=== PATIENT | male | born 1935 | race Caucasian/White ===

== ENCOUNTER 2023-12-13 23:16 | Inpatient (IN) | payer OTHER, SELFPAY ==
[2023-12-13] VITALS (7 sets, daily range): BP systolic 121–146; BP diastolic 62–77; BMI 29.2
[2023-12-13 17:52] LABS: % Basophils 0.4 % (0-2); % Immature Granulocytes 0.6 % (0-0.5); % Monocytes 10.2 % (1.7-9.3); % Neutrophils 55.8 % (42.2-75.2); Absolute Eosinophils 0.2 10^3/uL (0-0.7); Absolute Lymphocytes 1.6 10^3/uL (1.2-3.4); Absolute Monocytes 0.6 10^3/uL (0.1-0.6); Hematocrit 23.9 % (39.0-52.0); Hemoglobin 8.6 g/dL (13.0-18.0); Mean Corpuscular Hgb 33.2 pg (27.0-31.0); Mean Corpuscular Volume 92.3 fL (80.0-94.0); Mean Platelet Volume 9.4 fL (7.4-10.4); Nucleated Red Blood Cells % 0 % (-); Platelet Count 111 10^3/uL (130-400); Red Blood Cell Count 2.59 10^6/uL (4.70-6.10); Red Cell Dist. Width 13.2 % (11.5-14.5); White Blood Cell Count 5.4 10^3/uL (4.8-10.8)
[2023-12-13 18:12] LABS: Troponin I < 0.012 ng/ml
[2023-12-13 18:20] LABS: ALT (SGPT) 20 U/L (0-50); AST (SGOT) 22 U/L (17-59); Albumin 3.5 g/dl (3.5-5.0); Alkaline Phosphatase 43 U/L (38-126); Blood Urea Nitrogen 42 mg/dl (9-20); Calcium 9.4 mg/dl (8.4-10.2); Carbon Dioxide 22 mmol/L (22-30); Chloride 97 mmol/L (98-107); Estimated Creatinine Clearance 29 ml/min; Glucose 190 mg/dl (70-99); Potassium 4.2 mmol/L (3.5-5.1); Sodium 131 mmol/L (135-145); Total Bilirubin 0.7 mg/dl (0.2-1.3); Total Protein 5.7 g/dl (6.3-8.2); eGFR 31.71
--- NOTE | 2023-12-13 22:15 | ED.GENMED ---
History of Present Illness
General
Chief Complaint: Fainting/Passed Out
Source: patient, family and ambulance crew
Exam Limitations: none
Time Seen by Provider: 12/13/23 21:50
Nursing documentation reviewed up to this point in time: agreed with
History of Present Illness
History of Present Illness:
88-year-old male with a past medical history of hypertension, hyperlipidemia, diabetes, chronic kidney disease who presents to the emergency room via EMS accompanied by his family for evaluation of lightheadedness/presyncope. Patient was reportedly
in his normal state of health and was in the shower around 4 PM�his was assisting him. He began to complain of feeling dizzy and his assisted him to sit. She says that he then had a prolonged (10 to 15 minutes) episode where he was less
responsive, 'eyes rolled back'. He says that he remembers feeling 'like I was going to pass out.' His says that he was still talking but very out of it during the episode. By EMS arrival symptoms had resolved. He says that he feels well
here. He does not recall any chest pain, palpitations. No abdominal or flank pain. No headache. No focal weakness or numbness, vision changes. No similar symptoms in the past. He had labs sent in triage and was noted to be anemic�he has had
dark stools attributed to recent initiation of iron.
Past History
Past History
ED Past Medical History: HTN, Hypercholesterolemia, NIDDM and Other (BPH, right lung mass with right lung lobectomy)
Social History
Tobacco: Former smoker
Personal:
Living: with family
Employment: Retired
Review of Systems
Review of Systems
All Other Systems: ROS reviewed and negative except as documented in HPI and ROS
Constitutional: Denies fever or chills
Respiratory: Denies cough or trouble breathing
Cardiac: Reports syncope; Denies chest pain or palpitations
ABD/GI: Denies abdominal pain, nausea or vomiting
: Denies flank pain
Musculoskeletal: Denies edema, neck pain or back pain
Neurological: Denies dizzy or headache
Phy Exam
Physical Exam
Physical Exam:
General: Awake, alert, oriented x3; no acute distress
Head: Normocephalic, atraumatic
Eyes: Conjunctiva normal, sclera anicteric
Throat: Airway intact, handling secretions
Neck: Trachea midline, supple without meningismus
Lungs: Clear to auscultation bilaterally, no wheezing, rales, rhonchi
Heart: Regular rate and rhythm, no murmurs, gallops, or rubs appreciated
Abd: Soft, non distended, nontender, no palpable masses
Rectal: Black stool with no bright red blood, Hemoccult was very faintly positive
Neuro: No gross deficits
Skin: no rash
Extremities: No edema in extremities, equal pulses in all extremities
Scores
Heart Failure Risk
Heart Failure Risk Score: Not Applicable
Heart Score for Chest Pain Patients
STEMI patient?: Not applicable
Withdrawal Assessment of Alcohol
Withdrawal Assessment Completed?: Not applicable
Course
Orders/Labs/Results
Orders:
Orders
12/13/23 17:14
Electrocardiogram (*1) Urgent
Reason for Study: Syncope
EKG- Treatment ONCE
12/13/23 17:35
Complete Blood Count/With Diff Urgent
Comprehensive Metabolic Panel Urgent
Troponin I Urgent
12/13/23 22:14
Pantoprazole [Protonix IV] 40 mg IV NOW STA
12/13/23 22:15
PTT Urgent
Prothrombin Time Urgent
Pantoprazole 80 mg/100 ml Nss [Protonix] 80 mg in 100 ml IV Q10H
Abnormal Lab Results
12/13/23
17:35
RBC 2.59 L 10^6/uL
(4.70-6.10)
Hgb 8.6 L g/dL
(13.0-18.0)
Hct 23.9 L %
(39.0-52.0)
MCH 33.2 H pg
(27.0-31.0)
Plt Count 111 L 10^3/uL
(130-400)
Immature Gran % 0.6 H %
(0-0.5)
Monocytes % 10.2 H %
(1.7-9.3)
Sodium 131 L mmol/L
(135-145)
Chloride 97 L mmol/L
(98-107)
BUN 42 H mg/dl
(9-20)
Creatinine 2.0 H mg/dL
(0.7-1.3)
Glucose 190 H mg/dl
(70-99)
Total Protein 5.7 L g/dl
(6.3-8.2)
12/13/23 17:35
12/13/23 17:35
Vital Signs
Initial and Last Documented VS:
Initial Vital Signs
Temp Pulse Resp Pulse Ox
35.4 C L 66 20 100
12/13/23 17:15 12/13/23 17:15 12/13/23 17:15 12/13/23 17:15
Last Documented Vital Signs
Temp Pulse Resp BP Pulse Ox
36.0 C L 96 20 134/67 100
12/13/23 20:36 12/13/23 21:51 12/13/23 21:51 12/13/23 21:51 12/13/23 21:51
MDM/Problems Addressed
Differential Diagnosis Includes:
Dysrhythmia, anemia, dehydration, hypoglycemia, electrolyte derangement
MDM/Problems Addressed:
88-year-old male presents for evaluation after prolonged episode of lightheadedness/presyncope. Resolved by arrival here in the ER. Vitals were significant for some mild hypothermia otherwise unremarkable. He was in the shower during the episode.
Physical exam as above. He had an EKG in triage which shows sinus rhythm with no AV block. Had labs sent in triage which showed anemia with a hemoglobin of 8.6 today�this is increased from prior value of 11.5 (from 2021). CMP shows stable
creatinine at 2. Glucose 190. Troponin was undetectable. Hemoccult performed was very faintly positive�apparently does have prior history of ulcer, could have acute on chronic anemia from GI bleeding leading to his lightheadedness. I think he
should have his hemoglobin trended and monitor for bleeding. Will start on PPI plus infusion. Admit for continued monitoring. Discussed with hospitalist for admission.
*EKG
Interpreted by ED Provider?: Yes
Heart Rate: 80
Rate: normal
Rhythm: sinus and PVC's
Fidelity: left axis deviation
Interval: first degree heart block
QRS Pattern: low voltage
Ischemia: non-specific ST changes
*Critical Care Note
Total Time (30-74mins, 75-104mins- exclusive of procedures): Not Applicable
Data Reviewed
Review of Other/Old Records Reveals: Labs and Records
Source: patient, spouse, family and ambulance crew
Patient Management
Discussion with other providers: Hospitalist (Discussed with hospitalist)
Escalation/DeEscalation of care consider admission/obs:
Admission indicated
ED Attending Note
-
Portions of this chart may have been created with voice recognition software.� Occasional wrong word or��sound alike� substitutions may have occurred due to the inherent limitations of voice recognition software.
Discharge Plan
Departure
Patient Disposition: Admit
Date of Disposition: 12/13/23
Time of Disposition: 22:18
Admit to doctor: Mariaelena
Presentation/result/management discussed w/ accepting MD/DO: Hospitalist
Discharge Problem:
Lightheadedness, Anemia, Upper GI bleed
Prescriptions:
No Action
glipizide [Glipizide XL] 5 MG tablet extended release 24hr
10 mg PO BID
atenolol 25 MG tablet
25 mg PO DAILY
aspirin [Aspir-Low] 81 MG tablet,delayed release (DR/EC)
81 mg PO DAILY
bumetanide 1 MG tablet
1 mg PO DAILY
Centrum Chewables 1 EACH tablet,chewable
1 ea PO DAILY
atorvastatin 40 mg Tablet
40 mg PO HS
famotidine 20 mg Tablet
20 mg PO DAILY
tamsulosin 0.4 mg Capsule
0.4 mg PO HS
methimazole 5 mg Tablet
5 mg PO HS
lisinopril 5 mg Tablet
5 mg PO HS
insulin glargine [Lantus Solostar U-100 Insulin] 100 unit/mL (3 mL) Insulin Pen
6 unit SC .AM
insulin glargine [Lantus Solostar U-100 Insulin] 100 unit/mL (3 mL) Insulin Pen
10 unit SC QPM
Tradjenta 5 mg Tablet
5 mg PO DAILY
Glucosamine Chondroitin 550-30-1 mg Capsule
1 cap PO BID
Prevagen
1 tab PO DAILY
calcium
1 tab PO DAILY
niacin
1 tab PO DAILY
pantoprazole [Protonix] 40 mg tablet,delayed release (DR/EC)
40 mg PO BID Qty: 20 0RF
Referrals:
UNKNOWN - PT DOES,NOT KNOW [Family Provider] -
Interventions
Interventions:
*Risk Screen - Suicide Last Done: 12/13/23 18:35
*General Assessment Last Done: 12/13/23 18:35
*Neglect/Abuse Screening Last Done: 12/13/23 18:35
*ED COVID-19 Vaccine History Last Done: 12/13/23 18:34
ED- Cardiac Assessment Last Done: 12/13/23 18:34
ED- Neurological Assessment Last Done: 12/13/23 17:25
Discharge Date and Time
Print Language: PUERTO RICAN
--- NOTE | 2023-12-13 22:25 | HPS.HSE ---
Family Physician
-
Family Physician: NOT KNOW UNKNOWN - PT DOES
Chief Complaint
-
Near syncope x 2
History of Present Illness
88-year-old male from family's home by EMS with reported 2 witnessed near syncopal episodes while sitting in the shower. He reports feeling very dizzy with his eyes rolling back. His states he was dizzy and belching with bulging eyes bigger
than his normal eyes she states she reports he did not pass out he was talking to her during these events. He reports chronic black stools from ferrous sulfate. He does report some recent hard black stools. He denies fever, chills, chest pain,
palpitations, cough, shortness of breath, abdominal pain, nausea, vomiting, diarrhea, urinary symptoms. He received 500 cc NSS bolus by EMS en route to the ER. The patient and report they live in [facility] and were due to go home
tomorrow December 14, 2023.
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
approximately 60 years ago BPH, DM 2
Medical History
Past Medical History
Past Medical History: Reports Other
Additional Past Medical History:
HTN
HLD
palpitations
right lung lobectomy secondary to lung mass
former smoker 12 years 3 pack a day quit 1967
chronic bilateral hand essential tremors
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
BPH
DM 2
Past Surgical History: Reports Other
Additional Past Surgical History:
right lung lobectomy secondary to lung mass,
Social History
Tobacco: Former Smoker (former smoker 12 years 3 pack a day quit 1967)
Alcohol: None
Drug: None
Personal:
Living: With Family ( Brandee)
Employment: Retired
Family History
Family History: Other (Mother CAD 72 Father DM2 complications a 77)
Allergies / Home Medications
Allergies reflects when Allergies were last updated in [employer].
Home Medications with original date entered in [employer]
Allergy/Medication List:
Allergies
Allergy/AdvReac Type Severity Reaction Status Date / Time
No Known Allergies Allergy Verified 12/13/23 17:08
Home Medications
aspirin 81 mg tablet,delayed release (Aspir-Low) 81 mg PO DAILY 11/15/13
bumetanide 1 mg tablet 1 mg PO DAILY 11/15/13
rrqnwooc-awfbflmy-pjcu 8 mg-folic ac 400 mcg-vit K 10 mcg chew tablet (Centrum Chewables) 1 ea PO DAILY 11/15/13
Prevagen 1 tab PO DAILY 11/12/21
atorvastatin 40 mg tablet 40 mg PO HS 11/12/21
calcium 1 tab PO DAILY 11/12/21
famotidine 20 mg tablet 20 mg PO DAILY 11/12/21
glucosamine sulf dipot chlr,msm,chond 550 mg-C 30 mg-octavia 1 mg capsule (Glucosamine Chondroitin) 1 cap PO BID 11/12/21
insulin glargine 100 unit/mL (3 mL) subcutaneous pen (Lantus Solostar U-100 Insulin) 6 unit SC .AM 11/12/21
linagliptin 5 mg tablet (Tradjenta) 5 mg PO DAILY 11/12/21
lisinopril 5 mg tablet 5 mg PO HS 11/12/21
methimazole 5 mg tablet 5 mg PO HS 11/12/21
niacin 1 tab PO DAILY 11/12/21
Vitamin C 1 tab PO DAILY 12/13/23
ferrous sulfate 325 mg PO DAILY 12/13/23
Review of Systems
-
History Source: Patient and Family ( Brandee at bedside)
A 12 point ROS was completed and negative except as noted: Yes
Constitutional: Denies Fever, Fatigue or Chills
EENT: Reports Other (Chronic large goiter left side greater than right); Denies Sore Throat or Runny Nose
Respiratory: Denies Cough or Trouble Breathing
Cardiac: Reports Other (Near syncope at home); Denies Chest Pain, Diaphoresis or Palpitations
Abdomen/GI: Reports Constipated and Black Stools (Reports chronic black due to oral iron); Denies Abdominal Pain, Nausea, Vomiting, Diarrhea or Bloody Stools
: Denies Dysuria, Frequency, Flank Pain or Incontinence
Musculoskeletal: Denies Joint Pain or Edema
Skin: Denies Itching or Rash
Neurological: Reports Dizzy and Other (Chronic bilateral hand essential tremors); Denies Headache or Weakness
Endocrine: Reports No Symptoms
Hematologic/Lymphatic: Reports No Symptoms
Psych: Reports Calm
Physical Exam
Vital Signs
Vital Signs
Temp Pulse Resp BP Pulse Ox
96.8 F L 96 20 134/67 100
12/13/23 20:36 12/13/23 21:51 12/13/23 21:51 12/13/23 21:51 12/13/23 21:51
Physical Exam
General: Comfortable and Conversant; No Pain, Fever or Chills
HEENT: NormoCephalic, Anicteric, PERRLA (Exophthalmos), Alcova Conjunctivae, No Ptosis and Other (Large left-sided thyroid goiter extending to just below mandible, right side thyroid goiter one third of the way up neck)
Respiratory: Clear; No Wheezes, Rales or Rhonchi
Cardiac: S1/S2 and Regular Rhythm; No Murmur, Rub, Gallop or Peripheral Edema
Breast: Deferred by me
GI: Soft, Non Tender, Non Distended, Normal Bowel Sounds and No Hepatosplenomegaly
Rectal: Hem Positive (Faint heme positive dark black stool per ER report)
Genito-urinary: Deferred by me
Musculoskeletal: No Clubbing, No Cyanosis and No Edema
Skin: Warm and Dry; No Rash or Jaundice
Neuro: AO x 3, No Motor Deficits, Cranial Nerves Intact, No Sensory Deficits and Tremors (Chronic bilateral hand essential tremors); No Slurred Speech, Facial Droop or Sedated
Psych: Calm
Laboratory Results
-
12/13/23 17:35
12/13/23 17:35
Laboratory Results
Total Bilirubin 0.7 mg/dl (0.2-1.3) 12/13/23 17:35
AST 22 U/L (17-59) 12/13/23 17:35
ALT 20 U/L (0-50) 12/13/23 17:35
Alkaline Phosphatase 43 U/L (38-126) 12/13/23 17:35
Troponin I < 0.012 ng/ml 12/13/23 17:35
Impression/Plan
-
Impression/plan:
Admit to telemetry
#Symptomatic anemia with near syncope
#Anemia 2/2 possible Upper GI bleed
#Hx iron deficiency anemia
-Reported slightly black heme positive stool in ER
-Hgb 8.6 prior labs 11.5 in 2021
-Type and screen, obtain blood consent
-Clears then n.p.o. after midnight
-Check B12, folate, iron panel
-Consult GI
-Check orthostatic vitals
-IV PPI drip
-HOLD ASA 81 mg daily
-HOLD current ferrous sulfate 325 mg once a day
-Follow CBC, BMP
#Hyperthyroidism/large goiter
#History of radioactive iodine 68 years ago
-Check TSH with free T4 reflex
-Continue methimazole 5 mg at bedtime
#CKD 3B�4A
Creat 2 is same as prior 11/12/2021
-Follow BMP
-Hold prevagin
#HTN�benign
BP 134/67
-Check orthostatic vitals
-Hold bumetanide 1 mg daily, lisinopril 5 mg at bedtime
#HLD
-Hold atorvastatin 40 mg at bedtime
#DM 2
-Accu-Cheks with SSI low , check HgbA1c
-Hold Lantus 6 units in a.m., Tradjenta 5 mg daily
#BPH hx
-Patient no longer on tamsulosin
#Right lung lobectomy secondary to lung mass 2013
Former smoker 12 years 3 pack/day quit 1967
#Chronic bilateral hand essential tremors
#Hx palpitations
DVT prophylaxis
SCDs
Full code per patient with Brandee at bedside
[2023-12-13] MEDS: PROTONIX 100 IV (22:39)
[2023-12-13] MEDS: PROTONIX IV 40 MG IV (22:39)
--- NOTE | 2023-12-13 22:49 | W.PN.UPDATE ---
Update Note
Progress Note Update
This note serves as an addendum to the H&P by electrician journeyman wireman DESIRE Maxine MAYO
HPI
88M Former smoker, HX HTN, HLD, NIDDM , BPH, s/p right lung lobectomy for Rt lung massseen at ER for
- lightheadedness this afternoon
- associated near syncopla episode
- found to have 3 point Hb drop (11.5-->8.6) albiet compared to 2021.
- Reports black stools but is on iron.
- Per ER DEMETRIS: faintly POS stool HOB
PHX: see above
Reviewed VS: T 95.8 --> 96.8
Vital Signs
Temp Pulse Resp BP Pulse Ox
96.8 F L 96 20 134/67 100
12/13/23 20:36 12/13/23 21:51 12/13/23 21:51 12/13/23 21:51 12/13/23 21:51
PE
Gen: Not orthopnic
HEENT: anicteric
Neck: large asymmetric goiter
Lungs: CTA
Cor: RRR S1 S2
Abdomen: obese
ASHER by ER: faintly POS dark stool HOB
BUSINESS DEVELOPMENT ANALYST: NFND
MS: b/l mild Reyes edema
Psych: approriate, ? cognitive decmine
Data
Hgb 8.6 - was 11.5 in 2021
Na 131 Cl 97
BUN 42
Cr 2- was 2.0 in 11/12/21
eGFR 31 c/w CKD3b
NEG TPNI
EKG
SINUS RHYTHM WITH FREQUENT PREMATURE VENTRICULAR COMPLEXES
LEFT AXIS DEVIATION
LOW VOLTAGE QRS
POSSIBLE LATERAL INFARCT (CITED ON OR BEFORE 12-NOV-2021)
ABNORMAL ECG
WHEN COMPARED WITH ECG OF 12-NOV-2021 07:09,
PREMATURE VENTRICULAR COMPLEXES ARE NOW PRESENT
QUESTIONABLE CHANGE IN INITIAL FORCES OF ANTERIOR LEADS
NO PRIOR hospitalist admission:
ASSESSMENT & PLAN
Pending Rx reconciliation
Near syncope
Suspect due to Blood loss anemia ( acute vs subacute)
Associated faintly POS dark stool HOB; on PO Fe Rx
Hemodynamically stable
- check Ortho VSS
- T & S. Blood consented
- check Ferritin
- H & H q6h
- Hold Blood Tx for now
- Held ASA
- NPO except sips of clear
- Empiric PPI gtt
- GI consult
Hypothermia concern for iatrogenic hypothyroid
Remote HX Radioisotope Tx for for Hperthroid Goiter
- Denied prior HX FNA
- check TSH
- Bear hugger
HX CKD3b - baseline Cr 2
- stable
HX HTN
- Hold any anti HTN Meds
IDDM
- Hold hypoglycemic agents due to NPO
- add ISS low
HX BPH on Tamsulosin
s/p right lung lobectomy for Rt lung mass
DVT Px: SCD
Full code
IP TLM
[2023-12-13 22:52] LABS: INR 1.23; PT 15.3 Sec (11.4-14.6)
[2023-12-13 22:53] LABS: APTT 25.9 Sec (23.4-35.0)
[2023-12-13 23:01] LABS: Iron 64 ug/dl (49-181)
[2023-12-13 23:08] LABS: Percent Saturation 30 % (20-50); Total Iron Binding Capacity 207 ug/dl (261-462)
[2023-12-14] VITALS (12 sets, daily range): BP systolic 18–143; BP diastolic 50–82; PULSE 98–122; O2SAT 99; BMI 29.2
[2023-12-14 00:17] LABS: TSH Reflex To Free T4 3.28 uIU/ml (0.47-4.68)
[2023-12-14 00:22] LABS: Ferritin 98.7 ng/ml (17.9-464.0)
[2023-12-14 00:53] LABS: Folate > 20.0 ng/ml (2.76-20); Vitamin B12 687 pg/ml (239-931)
--- NOTE | 2023-12-14 01:34 | PTCARENOTE ---
Received pt from ED via stretcher. PT able to stand from stretcher to standing scale with 2 person assist. AAO*4. VSS. notable hand tremors. Patient states, 'Not sure why this happens but they come and go'. Protonix gtt running at 8mg hour as per
order. Bed alarm placed secondary to history of recent fall. Bed placed low/ fall risk band placed, call garrison within reach. All orders acknowledged and reviewed. Plan of care discussed with patient.
[2023-12-14] MEDS: PROTONIX 100 IV (07:49)
[2023-12-14 08:14] LABS: % Basophils 0.4 % (0-2); % Eosinophils 2.5 % (0-6); % Immature Granulocytes 0.2 % (0-0.5); % Lymphocytes 26.7 % (20.5-51.1); % Monocytes 9.5 % (1.7-9.3); % Neutrophils 60.7 % (42.2-75.2); Absolute Eosinophils 0.2 10^3/uL (0-0.7); Absolute Lymphocytes 2.3 10^3/uL (1.2-3.4); Absolute Monocytes 0.8 10^3/uL (0.1-0.6); Absolute Neutrophils 5.2 10^3/uL (1.4-6.5); Hematocrit 24.5 % (39.0-52.0); Hemoglobin 8.9 g/dL (13.0-18.0); Mean Corp Hgb Conc. 36.3 g/dL (33.0-37.0); Mean Corpuscular Hgb 33.3 pg (27.0-31.0); Mean Corpuscular Volume 91.8 fL (80.0-94.0); Mean Platelet Volume 9.1 fL (7.4-10.4); Nucleated Red Blood Cells % 0 % (-); Platelet Count 103 10^3/uL (130-400); Red Blood Cell Count 2.67 10^6/uL (4.70-6.10); Red Cell Dist. Width 13.1 % (11.5-14.5); White Blood Cell Count 8.5 10^3/uL (4.8-10.8)
--- NOTE | 2023-12-14 08:30 | CON.GI ---
Addendum entered and electronically signed by Gaby Hunter MD 12/14/23 13:12:
I saw and examined the patient.
The [employer]ATION[employer]REMAN's note was reviewed and I agree with the note.
Comment: This is a 88 old male with past medical history as listed below including hypertension, hyperlipidemia, lung mass status post right lung lobectomy, hyperthyroidism, goiter treated with radioactive iodine remotely on methimazole, BPH, type 2
diabetes, CKD, prior history of gastric ulcers, colon polyps who presented to the ER with near syncopal episode and melena for the past 1 week he also recently was started on oral iron for anemia. On admission his hemoglobin was noted to be 8.6 and
was 11.5 in 2021. He currently denies any abdominal pain no hematemesis was reported. his prior endoscopy and colonoscopy as listed below were in 2019 in [place] they are here visiting their son. Denies any use of NSAIDs he is on aspirin but no
anticoagulation prior to admission
Assessment and plan melena for the past 1 week with near syncopal episode and anemia with elevated BUN most likely from chronic GI blood loss and acute blood loss/UGIB likely. If hemoglobin drops less than 7.5 would transfuse for symptomatic
anemia. Will schedule him for an endoscopy to rule out possible peptic ulcer disease versus angioectasias versus less likely neoplasm. If EGD is negative may need to discuss with and patient about pursuing a colonoscopy given prior history of
colon polyps but given his age would need to discuss risk-benefit. Currently he is hemodynamically stable. For now continue PPI drip if EGD is negative will switch him to twice daily. he was also noted to have thrombocytopenia unclear etiology if
further drop may need inpatient versus outpatient hematology evaluation.
Addendum entered and electronically signed by Shala Conway NP 12/14/23 10:26:
I was able to speak to the patient's Brandee who reports that her was started on oral iron by his dental therapist secondary to blood work that showed anemia. He has had no recent EGD or colonoscopy, but in 2019 had numerous colon polyps
removed and 1 large polyp that required EMR. She is unsure upon the recall for a repeat colonoscopy. He also had an EGD at that time in which they found an ulcer of unclear cause. She reports he does not use NSAIDs. He had been on omeprazole but
his kidney doctor had recommended switching to famotidine which she has been on once daily. She is unclear of his baseline hemoglobin. She denies any swallowing issues with him. She is agreeable for EGD.
Original Note:
Consultation
-
Date/Time Consultation Requested: 12/14/2023 @ 00:46
Date/Time Consultation Performed: 12/14/2023 @ 08:30
Requesting Provider: MIKE Rm
Performing Provider: MIKE Montes; Dr. Gaby Hunter
Reason for Consultation: UGI bleed
Medical History
Chief Complaint / HPI
Chief Complaint: near syncope
History of Present Illness:
The patient is an 88-year-old male with a past medical history significant for hypertension, hyperlipidemia, lung mass status post right lung lobectomy, hypothyroidism with history of goiter treated with radioactive iodine remotely, BPH, type 2
diabetes, CKD, who presented to the emergency room with complaints of near syncope, with findings of melena concerning for possible upper GI bleed. The patient is a poor historian, therefore history was obtained from the medical record. He reports
that for a week he has been having black stool. He notes that he takes oral iron, but does not typically have black stool with taking this, although they may be darker. He notes that he was feeling increasingly dizzy and lightheaded at home, and
did have at least one syncopal episode. Per admitting records his had reported 2 near syncopal episodes while sitting in the shower, with his eyes rolling in the back of his head. She reports she did not pass out fully as he was talking
during these episodes but did have a change in mental status. He reports that he does take aspirin daily and will use NSAID's on average once monthly for headaches. He otherwise denies any other significant symptoms such as nausea, vomiting,
heartburn, dysphagia, fevers, chills, chest pain, shortness of breath, change of bowel habits such as constipation or diarrhea, unintentional weight loss, or abdominal pain. He denies any smoking history. He denies any alcohol use. He denies any
other use of blood thinners. It is unclear what his baseline hemoglobin is as he does not know. He denies any history of GI bleeding. He lives in [place] most of the time with his and was planning to travel home today. He is
originally from this area and was visiting. Upon evaluation in the ER, routine labs showed a hemoglobin of 8.6, MCV 92.3, platelets 111,000, INR 1.23, BUN 42, creatinine 2.0, serum iron 64 iron saturation 30%, ferritin 98.7, total bilirubin 0.7,
AST 22, ALT 20, alk phos 43, troponin negative x 1, vitamin B12 687, folate greater than 20, TSH 3.28. He was placed on a PPI drip, made n.p.o., and admitted for further evaluation by GI.
Past Medical History
Past Medical History: HTN, Hypercholesterolemia, NIDDM and Other (BPH, history of lung mass with right lung lobectomy, iron deficiency, goiter with prior history of radioactive iodine therapy chronic, bilateral essential tremors of the upper
extremities)
Past Surgical History: Other (Right lung surgery secondary to lung mass)
Social History
Tobacco: Former Smoker
Alcohol: None
Drug: None
Personal:
Living: With Family
Family History
Family History: Reviewed & Not Pertinent
Allergies / Home Medications
Allergy/AdvReac Type Severity Reaction Status Date / Time
No Known Allergies Allergy Verified 12/13/23 17:08
�Medication �Instructions �Recorded
aspirin 81 mg tablet,delayed 81 mg PO DAILY 11/15/13
release (Aspir-Low)
bumetanide 1 mg tablet 1 mg PO DAILY 11/15/13
yjlquzll-lpxzaxyc-ziwg 8 mg-folic 1 ea PO DAILY 11/15/13
ac 400 mcg-vit K 10 mcg chew
tablet (Centrum Chewables)
Prevagen 1 tab PO DAILY 11/12/21
atorvastatin 40 mg tablet 40 mg PO HS 11/12/21
calcium 1 tab PO DAILY 11/12/21
famotidine 20 mg tablet 20 mg PO DAILY 11/12/21
glucosamine sulf dipot 1 cap PO BID 11/12/21
chlr,msm,chond 550 mg-C 30 mg-octavia
1 mg capsule (Glucosamine
Chondroitin)
insulin glargine 100 unit/mL (3 6 unit SC .AM 11/12/21
mL) subcutaneous pen (Lantus
Solostar U-100 Insulin)
linagliptin 5 mg tablet (Tradjenta) 5 mg PO DAILY 11/12/21
lisinopril 5 mg tablet 5 mg PO HS 11/12/21
methimazole 5 mg tablet 5 mg PO HS 11/12/21
niacin 1 tab PO DAILY 11/12/21
Vitamin C 1 tab PO DAILY 12/13/23
ferrous sulfate 325 mg PO DAILY 12/13/23
Review of Systems
-
History Source: Patient
Constitutional: Reports No Symptoms
EENT: Reports No Symptoms
Respiratory: Reports No Symptoms
Cardiac: Reports Syncope
Abdomen/GI: Reports Black Stools
: Reports No Symptoms
Musculoskeletal: Reports No Symptoms
Skin: Reports No Symptoms
Neurological: Reports Dizzy and Weakness
Endocrine: Reports No Symptoms
Hematologic/Lymphatic: Reports No Symptoms
Vital Signs
Temp Pulse Resp BP Pulse Ox
98.1 F 100 18 128/63 98
12/14/23 07:58 12/14/23 07:58 12/14/23 07:58 12/14/23 07:58 12/14/23 07:58
Physical Exam
Exam
General: No Apparent Distress, Comfortable and Other (Elderly-appearing male in no acute distress)
HEENT: Normocephalic, Anicteric and Other (+large goiter left and right neck)
Respiratory: Clear
Cardiac: S1/S2 and Regular Rhythm
Breast: N/A
GI: Soft, Non Tender, Non Distended and Normal Bowel Sounds
Rectal: Other (black faintly heme + per ER)
Musculoskeletal: Edema (+1 L>R pedal edema)
Skin: Warm and Dry
Neuro: Awake, Alert, Oriented and Other (forgetful)
Psych: Calm
Results
WBC 8.5 10^3/uL (4.8-10.8) 12/14/23 07:41
Hgb 8.9 g/dL (13.0-18.0) L 12/14/23 07:41
Hct 24.5 % (39.0-52.0) L 12/14/23 07:41
MCV 91.8 fL (80.0-94.0) 12/14/23 07:41
Plt Count 103 10^3/uL (130-400) L 12/14/23 07:41
Absolute Neuts (auto) 5.2 10^3/uL (1.4-6.5) 12/14/23 07:41
PT 15.3 Sec (11.4-14.6) H 12/13/23 22:35
INR 1.23 12/13/23 22:35
APTT 25.9 Sec (23.4-35.0) 12/13/23 22:35
Sodium 131 mmol/L (135-145) L 12/13/23 17:35
Potassium 4.2 mmol/L (3.5-5.1) 12/13/23 17:35
Chloride 97 mmol/L (98-107) L 12/13/23 17:35
Carbon Dioxide 22 mmol/L (22-30) 12/13/23 17:35
BUN 42 mg/dl (9-20) H 12/13/23 17:35
Creatinine 2.0 mg/dL (0.7-1.3) H 12/13/23 17:35
Calcium 9.4 mg/dl (8.4-10.2) 12/13/23 17:35
Total Bilirubin 0.7 mg/dl (0.2-1.3) 12/13/23 17:35
AST 22 U/L (17-59) 12/13/23 17:35
ALT 20 U/L (0-50) 12/13/23 17:35
Alkaline Phosphatase 43 U/L (38-126) 12/13/23 17:35
Diagnostic Image Results: None
Prior GI Procedures:
EGD: none
Colonoscopy: remote per pt (unsure if he had polyps)
Assessment / Plan
-
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
BPH, type 2 diabetes, CKD, who presented to the emergency room with complaints of near syncope, with findings of melena concerning for possible upper GI bleed. She reports acute onset of melena 1 week ago although with chronically darker stools on
initial report with oral iron. He had 2 episodes of syncope/near syncope at home witnessed by his preceded by dizziness. He is on aspirin otherwise no reported blood thinners. He denies use of NSAIDs or than once monthly. He has a history
of iron deficiency, but he is unclear as to the workup behind this. He denies any prior history of GI bleeding. His last colonoscopy reports was done many years ago and does not recall the results. He does not believe he has ever had an EGD. He
does have chronic kidney disease with a creatinine baseline around 2 per records from 2021. He is hemodynamically stable. Started on PPI drip, n.p.o., pending possible EGD today.
Problem list:
-melena
-syncope/near-syncope
-normocytic anemia, ?acute on chronic (hgb 8.6--> 11.5 in 2021)
-CKD
-mild thrombocytopenia
-hx iron deficiency on supplemental oral iron
Other pertinent medical hx:
-lung mass s/p lung lobectomy (?right)
-DM2
-HTN
-HLD
-BPH
-hyperthyroidism with large goiter s/p radioactive iodine? (per pt he does not recall this)
-chronic essential hand tremors
Recommendations:
-Etiology of melena possibly secondary to slow upper GI blood loss (PUD v AVM v erosive gastritis v other) v other. He is on oral iron chronically although reports acute onset of melena 1 week ago. His anemia is likely driven by his chronic kidney
disease as well.
-Plan for eventual EGD today, timing to be determined. I did leave a voicemail for his to call to discuss further given he did not give much insight into his history.
-Continue to trend H&H and transfuse for hemoglobin less than 7
-Monitor platelet count, may need hematology evaluation
-Continue with PPI drip for now
-Avoid NSAIDs and blood thinners
-Would be ideal to know his baseline labs and evaluate if he has had a GI workup for his anemia in the past. Will await a callback from his as above.
-Continue n.p.o. at this time
-Monitor hemodynamics, orthostatics
-Monitor for signs of bleeding
-Further plan and management pending above
-
-
Thank you for consultation and allowing me to participate in the patient's care. Please call the retort condenser attendant GI physician during the after hours with any questions or concerns.
[2023-12-14] MEDS: NOVOLOG FLEXPEN-LOW RESISTANCE SC ×2 (08:33→12:50)
[2023-12-14 08:43] LABS: Glucose - Point of Care 137 mg/dl (70-99)
[2023-12-14 09:00] LABS: Blood Urea Nitrogen 37 mg/dl (9-20); Calcium 9.7 mg/dl (8.4-10.2); Carbon Dioxide 23 mmol/L (22-30); Chloride 100 mmol/L (98-107); Estimated Creatinine Clearance 28 ml/min; Glucose 122 mg/dl (70-99); HDL Cholesterol 34 mg/dl; LDL Cholesterol, Calculated 31 mg/dl; Potassium 3.8 mmol/L (3.5-5.1); Sodium 135 mmol/L (135-145); Total Cholesterol 84 mg/dl (50-199); Triglyceride 97 mg/dl (10-149); Very Low Density Lipoprotein 19 mg/dl (0-30)
[2023-12-14 09:06] LABS: Glycohemoglobin (HgbA1c) 6.5 % (4.0-5.6)
--- NOTE | 2023-12-14 11:55 | W.PN.UPDATE ---
Update Note
Progress Note Update
Discussed with his Brandee regarding his EGD findings over the telephone and went over the options of repeating a colonoscopy here and if that is unremarkable then a capsule endoscopy but they were supposed to fly to [place] today (they live
in [place] visiting their son locally) and they would like to leave soon to [place] so if he has no further bleeding and hemoglobin remains stable we could probably discharge him tomorrow and she will make an appointment with his flight manager
in [place] who did his prior colonoscopy with polypectomy in 2019 to pursue after discussion about risk and benefit given his age of repeating a colonoscopy and possibly a capsule endoscopy with his GI in [place].
[2023-12-14 12:47] LABS: Glucose - Point of Care 142 mg/dl (70-99)
--- NOTE | 2023-12-14 13:23 | W.PN.HOSP.TC ---
Addendum entered and electronically signed by Doyle Rodriguez MD 12/14/23 15:31:
I saw and evaluated the patient. I reviewed the resident�s note and agree with findings and plan as documented in the resident�s note.
Patient seen post EGD. EGD showing gastric polyp -not biopsied, small AVM in duodenum -not bleeding.
GI recommended for patient to have follow-up colonoscopy and capsule endoscopy once patient back in [place]
Maintain on PPI
Dizziness episode -with minimal GI bleed ? Versus orthostasis
Monitor orthostatic vitals
Cardiac examination benign, will require follow-up with cardiology/echocardiogram if symptoms persist
on small dose of lisinopril and continue
Time spent : 51 mins
Original Note:
Today's Communication/Plan
-
Monitor for tachyarrythmias and orthostatic hypotension
GI consult
Get patient record
Assessment / Plan
Assessment / Plan
IMPRESSION
Patient is 88yr/male, admitted with lightheadedness/presyncopal episodes especially while taking showers.He mentions this episode was prolonged to 10-15 min and he felt like he was going to pass out.
ASSESSMENT
1.Presyncope episodes secondary to orthostatic hypotension?
2.Acute anemia secondary to duodenal talengectasias?/PUD/neoplasm
3.Hypertension
4.type 2 diabetes mellitus
5.Multinodular goiter/Hyperthyroidism/palpitations
6.Chronic kidney disease
7. Right sided lung lobectomy done due to lung mass
PLAN
1.Presyncope episodes secondary to orthostatic hypotension?
Monitor blood pressure
Hold home blood pressure medications for now
2.Acute anemia secondary to duodenal talengectasias?/PUD/neoplasm
Patient had melena, was taking iron tablets
hgb drop from 11(2021) to 8 (2023)
gaatroenterology consult appreciated
EGD Impression: -
Non-obstructing Schatzki ring.
- Z-line irregular, 40 cm from the incisors.
- Prominent vessels seen in proximal esophagus.
- Medium-sized hiatal hernia.
- A single gastric polyp (erythematous). not biopsied
given recent UGIB
- Erosive gastropathy with no bleeding and no stigmata
of recent bleeding.
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
- The examined portion of the jejunum was normal.
- No specimens collected.
Recommendation: - Continue present medications.
- Avoid NSAIDs
- Most likely etiology of KISHOR and Acute blood loss
anemia is small bowel angiectasias but given that he
has h/o large colon polyps would reccommend OP colo
and Capsule endoscopy if patient and want to
pursue given age. Could repeat EGD at time of colo to
biopsy the gastric polyp. Continue oral Iron.
3.Hypertension
Hold blood pressure medications for now
keep monitoring pulse and blood pressure
Check for orthostatic hypotension
4.Type 2 diabetes mellitus
Hold home medications 5mg tradjenta and lantus 6 units for now
monitor blood sugar levels
check HbA1c
.
5.Multinodular goiter/Hyperthyroidism/palpitations
Patient hyperthyroid(TSH within normal range 3.38) on methimazole
patient has tachycardia and PVCs on EKG
keep monitoring the heart rhythm for tachyarythmmias
6.Chronic kidney disease
Serum creatinine 2
Try to get baseline labs from patient's medical record to compare
7.R sided lung lobectomy done due to lung mass
Patient does not know the nature of tumor that lead to lobectomy in 2013
Full code
Anticipated Discharge: 24 - 48 hours
Subjective/Interval History
-
Date of Service: December 14, 2023
No active issues. Admitted for workup of presyncopal episodes and anemia. on bedrest due to fall risk given his dizziness and orthostatic hypotension
Objective Data
-
Labs:
Laboratory Results
12/14/23
07:41
WBC 8.5
Hgb 8.9 L
Hct 24.5 L
Plt Count 103 L
Sodium 135
Potassium 3.8
Chloride 100
Carbon Dioxide 23
BUN 37 H
Creatinine 2.1 H
Glucose 122 H
Calcium 9.7
Vital Signs:
Vital Signs
Temp Pulse Resp BP Pulse Ox
97.9 F 101 18 134/68 98
12/14/23 12:46 12/14/23 12:46 12/14/23 12:46 12/14/23 12:46 12/14/23 12:46
I&O
12/13/23 12/14/23 12/15/23
06:59 06:59 06:59
Output Total 600 / 600
Balance -600 / -600
Review of Systems
-
All other systems: Reviewed and negative
Physical Exam
-
General: Well Developed, Well Nourished, No Apparent Distress and Comfortable
HEENT: Normocephalic, Atraumatic and Other (multinodular goiter, exophthalmos?)
Respiratory: Clear to Auscultation and Rhonchi
Cardiac: Regular Rhythm and S1/S2
GI: Soft, Nontender, Nondistended and Normal Bowel Sounds
Genito-urinary: No Costovertebral Tender
Musculoskeletal: No Clubbing and No Cyanosis
Neuro: Awake, Alert, Oriented and No Motor Deficits
Hematologic / Lymphatic: No Lymphadenopathy
Psych: Calm
--- NOTE | 2023-12-14 16:01 | CM ---
CM met with Rm at bedside to complete IA. Rm and his live together in [place] and are here visiting family; planned return home was to be today, however due to hospitalization he will have to reschedule their departure.
Rm has been (I) with a cane [employer] and his provides assistance with showering. They live together in a 1 story home with 3 entry steps. He has had some mild confusion during the hospitalization, however his advised he does have some
bouts of confusion in new settings.
Plan: Rm will return home to [place] with his at discharge with no anticipated needs.
[2023-12-14 17:09] LABS: Glucose - Point of Care 250 mg/dl (70-99)
[2023-12-14] MEDS: NOVOLOG FLEXPEN-LOW RESISTANCE 3 UNITS SC (17:45)
--- NOTE | 2023-12-14 19:29 | PTCARENOTE ---
Received patient this am AAOx3. Pt LUCIANO rodriguez doesn't have his hearing aides at hospital. Pt NPO this am. Pt to GI unit for Endoscopy. Pt returned to unit post endoscopy. Tolerated low residue diet. Offered no complaints. Made patient comfortable.
Cont to assess patient status.
[2023-12-14] MEDS: PROTONIX IV 40 MG IV (20:40)
[2023-12-14] MEDS: TAPAZOLE 5 MG PO (20:41)
[2023-12-14] MEDS: NSS (PRESERVATIVE FREE) 10 ML IV (20:41)
[2023-12-14 21:38] LABS: Glucose - Point of Care 277 mg/dl (70-99)
[2023-12-15 03:04] VITALS: BP 134/67
[2023-12-15 06:00] VITALS: BMI 27.4
--- NOTE | 2023-12-15 07:01 | W.PN.HOSP.TC ---
Addendum entered and electronically signed by Doyle Rodriguez MD 12/15/23 15:23:
I saw and evaluated the patient. I reviewed the resident�s note and agree with findings and plan as documented in the resident�s note.
No reported episode of melena/hematochezia. EGD showing erosive gastropathy and duodenal angiectasia. GI recommended for patient to be maintained on Protonix daily.
Patient to follow-up with primary youth agent in [place] for further evaluation with capsule endoscopy and colonoscopy
Patient dizziness likely coming from orthostatic hypotension, vitals checks are positive.
Patient on lisinopril at nighttime will continue for now
Patient advised to wear compression stockings for time being and follow-up with primary care physician for further management if orthostasis persists.
Discharge home
Original Note:
Today's Communication/Plan
-
Check for patient's hemoglobin, if stable patient can be discharged.
Give instructions regarding the use of compression stockings at home.
Assessment / Plan
Assessment / Plan
IMPRESSION
Patient is 88yr/male, admitted with lightheadedness/presyncopal episodes especially while taking showers.He mentions this episode was prolonged to 10-15 min and he felt like he was going to pass out.
ASSESSMENT
1.Presyncope episodes secondary to orthostatic hypotension?
2.Acute anemia secondary to duodenal talengectasias?/PUD/neoplasm
3.Hypertension
4.type 2 diabetes mellitus
5.Multinodular goiter/Hyperthyroidism/palpitations
6.Chronic kidney disease
7. Right sided lung lobectomy done due to lung mass
PLAN
1.Presyncope episodes secondary to orthostatic hypotension?
Orthostatic vitals show patient had orthostatic hypotension in the morning.
Monitor blood pressure
Hold home blood pressure medications for now
2.Acute anemia secondary to duodenal talengectasias?/PUD/neoplasm
Patient had melena, was taking iron tablets
hgb drop from 11(2021) to 8 (2023)
gaatroenterology consult appreciated
EGD Impression: -
Non-obstructing Schatzki ring.
- Z-line irregular, 40 cm from the incisors.
- Prominent vessels seen in proximal esophagus.
- Medium-sized hiatal hernia.
- A single gastric polyp (erythematous). not biopsied
given recent UGIB
- Erosive gastropathy with no bleeding and no stigmata
of recent bleeding.
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
- The examined portion of the jejunum was normal.
- No specimens collected.
Recommendation: - Continue present medications.
- Avoid NSAIDs
- Most likely etiology of KSIHOR and Acute blood loss
anemia is small bowel angiectasias but given that he
has h/o large colon polyps would reccommend OP colo
and Capsule endoscopy if patient and want to
pursue given age. Could repeat EGD at time of colo to
biopsy the gastric polyp. Continue oral Iron.
Patient prefers to go back to [place] and have further workup done there including colonoscopy and capsule endoscopy
According to gastroenterology, anemia appears to be multifactorial from chronic GI loss and also acute blood loss with melena a few days ago as well as chronic kidney disease could be a contributing factor. If hemoglobin stable patient can go home
and follow-up with his GI in [place].
Today patient has hemoglobin of 11.3
3.Hypertension
Hold blood pressure medications for now
keep monitoring pulse and blood pressure
Check for orthostatic hypotension
4.Type 2 diabetes mellitus
Patient has an HbA1c of 6.5, diabetes is well-controlled and patient can continue on home medications upon discharge.
.
5.Multinodular goiter/Hyperthyroidism/palpitations
Patient hyperthyroid(TSH within normal range 3.38) on methimazole
patient has tachycardia and PVCs on EKG
keep monitoring the heart rhythm for tachyarrythmia
6.Chronic kidney disease
Serum creatinine 2
Try to get baseline labs from patient's medical record to compare
7.R sided lung lobectomy done due to lung mass
Patient does not know the nature of tumor that lead to lobectomy in 2013
Full code
Anticipated Discharge: Today
Subjective/Interval History
-
Date of Service: December 15, 2023
Patient complains of no new dizziness spells, no falls, patient is walking with the help of a walker. He would like to follow-up with his primary care physician in [place] for further workup.
Objective Data
-
Labs:
Laboratory Results
12/15/23
06:00
WBC Pending
Hgb Pending
Hct Pending
Plt Count Pending
Sodium Pending
Potassium Pending
Chloride Pending
Carbon Dioxide Pending
BUN Pending
Creatinine Pending
Glucose Pending
Calcium Pending
Vital Signs:
Vital Signs
Temp Pulse Resp BP Pulse Ox
98.5 F 100 20 134/67 97
12/15/23 03:04 12/15/23 03:04 12/15/23 03:04 12/15/23 03:04 12/15/23 03:04
I&O
12/14/23 12/15/23 12/16/23
06:59 06:59 06:59
Intake Total 530 / 530
Output Total 1630 / 1630
Balance -1100 / -1100
Review of Systems
-
All other systems: Reviewed and negative
Physical Exam
-
General: Well Developed, Well Nourished, Conversant and Obese (BMI 27.4)
HEENT: Normocephalic, Atraumatic and Thyromegaly (Multinodular goiter)
Respiratory: Clear to Auscultation
Cardiac: Regular Rhythm and S1/S2
GI: Soft, Nontender, Nondistended and Normal Bowel Sounds
Genito-urinary: No Costovertebral Tender
Musculoskeletal: No Clubbing, No Cyanosis and No Edema
Skin: Warm and Dry
Neuro: Awake, Alert and Oriented
Hematologic / Lymphatic: No Lymphadenopathy
Psych: Calm
[2023-12-15 07:19] LABS: Glucose - Point of Care 146 mg/dl (70-99)
[2023-12-15 08:39] VITALS: BP 146/73; BP 149/71; BP 99/63; PULSE 112; PULSE 114; PULSE 128
--- NOTE | 2023-12-15 08:42 | W.PN.GI.CBS2 ---
Today's Communication / Plan
-
IF Hb stable OK to DC home and f/u with his GI in [place]
Assessment / Plan
-
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
BPH, type 2 diabetes, CKD, who presented to the emergency room with complaints of near syncope, with findings of melena concerning for possible upper GI bleed. She reports acute onset of melena 1 week ago although with chronically darker stools on
initial report with oral iron. He had 2 episodes of syncope/near syncope at home witnessed by his preceded by dizziness. He is on aspirin otherwise no reported blood thinners. He denies use of NSAIDs or than once monthly. He has a history
of iron deficiency, but he is unclear as to the workup behind this. He denies any prior history of GI bleeding. His last colonoscopy reports was done many years ago and does not recall the results. He does not believe he has ever had an EGD. He
does have chronic kidney disease with a creatinine baseline around 2 per records from 2021. He is hemodynamically stable. Started on PPI drip, n.p.o., pending possible EGD today.
Problem list:
-melena
-syncope/near-syncope
-normocytic anemia, ?acute on chronic (hgb 8.6--> 11.5 in 2021)
-CKD
-mild thrombocytopenia
-hx iron deficiency on supplemental oral iron
Other pertinent medical hx:
-lung mass s/p lung lobectomy (?right)
-DM2
-HTN
-HLD
-BPH
-hyperthyroidism with large goiter s/p radioactive iodine? (per pt he does not recall this)
-chronic essential hand tremors
Recommendations:
-Anemia likely multifactorial from chronic GI blood loss and also acute blood loss with melena a few days ago and CKD
-Status post enteroscopy yesterday and was noted to have duodenal angioectasias which may be the source of his chronic iron deficiency anemia and melena and he may have more's small bowel angioectasias distal.
-Discussed with yesterday over the telephone since he has no active bleeding if hemoglobin remains stable today okay to DC home and is going to follow-up with his GI in [place] and pursue colonoscopy and capsule endoscopy if further bleeding or
drop in hemoglobin, he does have a prior history of large colon polyps.
-Plan for eventual EGD today, timing to be determined. I did leave a voicemail for his to call to discuss further given he did not give much insight into his history.
-Continue to trend H&H and transfuse for hemoglobin less than 7
-Monitor platelet count, may need hematology evaluation
-Avoid NSAIDs
-PPI daily
Subjective
Subjective
Date of Service: December 15, 2023
He denies any abdominal pain, no rectal bleeding or melena, no nausea or vomiting
He is anxious to go home
Objective
Data Reviewed
Laboratory Data:
Laboratory Results
PT 15.3 Sec (11.4-14.6) H 12/13/23 22:35
INR 1.23 12/13/23 22:35
APTT 25.9 Sec (23.4-35.0) 12/13/23 22:35
Total Bilirubin 0.7 mg/dl (0.2-1.3) 12/13/23 17:35
AST 22 U/L (17-59) 12/13/23 17:35
ALT 20 U/L (0-50) 12/13/23 17:35
Alkaline Phosphatase 43 U/L (38-126) 12/13/23 17:35
Vital Signs and I&O:
Vital Signs
Temp Pulse Resp BP Pulse Ox
98.4 F 112 18 149/71 91
12/15/23 08:39 12/15/23 08:39 12/15/23 08:39 12/15/23 08:39 12/15/23 08:39
I&O
12/14/23 12/15/23 12/16/23
06:59 06:59 06:59
Intake Total 530 / 530
Output Total 1630 / 1630
Balance -1100 / -1100
12/14/23 Enteroscopy
Impression: - Non-obstructing Schatzki ring.
- Z-line irregular, 40 cm from the incisors.
- Prominent vessels seen in proximal esophagus.
- Medium-sized hiatal hernia.
- A single gastric polyp (erythematous). not biopsied
given recent UGIB
- Erosive gastropathy with no bleeding and no stigmata
of recent bleeding.
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
- The examined portion of the jejunum was normal.
- No specimens collected.
Physical Exam
Physical Exam
Cardiology: Normal Sinus Rhythm
Pulmonary: Clear
GI: Soft, Non Distended, Non Tender and Normal Bowel Sounds
[2023-12-15] MEDS: NOVOLOG FLEXPEN-LOW RESISTANCE SC (08:59)
[2023-12-15] MEDS: NSS (PRESERVATIVE FREE) 10 ML IV (09:00)
[2023-12-15] MEDS: PROTONIX IV 40 MG IV (09:00)
[2023-12-15 09:04] LABS: % Basophils 0.3 % (0-2); % Eosinophils 2.3 % (0-6); % Immature Granulocytes 0.4 % (0-0.5); % Lymphocytes 21.6 % (20.5-51.1); % Monocytes 7.9 % (1.7-9.3); % Neutrophils 67.5 % (42.2-75.2); Absolute Eosinophils 0.3 10^3/uL (0-0.7); Absolute Lymphocytes 2.4 10^3/uL (1.2-3.4); Absolute Monocytes 0.9 10^3/uL (0.1-0.6); Absolute Neutrophils 7.6 10^3/uL (1.4-6.5); Hematocrit 27.4 % (39.0-52.0); Hemoglobin 9.8 g/dL (13.0-18.0); Mean Corp Hgb Conc. 35.8 g/dL (33.0-37.0); Mean Corpuscular Hgb 34.5 pg (27.0-31.0); Mean Corpuscular Volume 96.5 fL (80.0-94.0); Nucleated Red Blood Cells % 0 % (-); Platelet Count 120 10^3/uL (130-400); Red Blood Cell Count 2.84 10^6/uL (4.70-6.10); Red Cell Dist. Width 13.2 % (11.5-14.5); White Blood Cell Count 11.3 10^3/uL (4.8-10.8)
[2023-12-15 11:12] VITALS: BP 117/59
[2023-12-15 11:49] LABS: Glucose - Point of Care 227 mg/dl (70-99)
[2023-12-15 12:17] LABS: Blood Urea Nitrogen 38 mg/dl (9-20); Calcium 9.9 mg/dl (8.4-10.2); Carbon Dioxide 21 mmol/L (22-30); Chloride 100 mmol/L (98-107); Estimated Creatinine Clearance 25 ml/min; Glucose 130 mg/dl (70-99); Potassium 3.9 mmol/L (3.5-5.1); Sodium 136 mmol/L (135-145); eGFR 25.48
--- NOTE | 2023-12-15 14:27 | W.DCSUMMARY ---
Discharge Summary
Discharge Data
Date of Admission: 12/13/23
Date of Discharge: 12/15/23
-
Pending Results: No
Hospital Course
Patient is a 88-year-old male with past medical history significant for hypertension, hyperlipidemia, lung mass s/p right lung lobectomy, hypothyroidism with history of Multinodular goiter treated with radioactive iodine remotely on methimazole,
BPH, type 2 diabetes, CKD, who presented to emergency room with with complaints of a presyncopal episode that happened while he was in shower and was witnessed by his . Patient was found to have orthostatic hypotension on observation of his
vitals for 24 hours. He was advised to use compression stockings in the mornings.
Patient gave history of melena 1 week ago and also complained of darker stools which he attributed to his iron intake. He denied any prior history of GI bleed
Patient was was started on a proton pump infusion drip and an esophageal gastroduodenoscopy was done that revealed a gastric polyp and multiple duodenal angioectasias..
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
Patient was kept under observation for 24 hours for any further bleed.
Discharge Plan
-
Patient Disposition: Home (Routine Discharge)
Discharge Diagnosis/Procedures: Anemia, Orthostatic hypotension
Condition: Fair
Diet: No restrictions
Activity: As tolerated
Driving Restrictions: No driving for 24 hours
Bathing Restrictions: OK to Shower
Activity Restrictions/Additional Instructions:
followup with your [facility] physician in [place]
wear compression stockings in the morning
Referrals:
UNKNOWN - PT DOES,NOT KNOW [Family Provider] -
Prescriptions:
New
pantoprazole 40 mg tablet,delayed release (DR/EC)
40 mg PO DAILY Qty: 30 0RF
Continued
aspirin [Aspir-Low] 81 MG tablet,delayed release (DR/EC)
81 mg PO DAILY
bumetanide 1 MG tablet
1 mg PO DAILY
Centrum Chewables 1 EACH tablet,chewable
1 ea PO DAILY
atorvastatin 40 mg Tablet
40 mg PO HS
famotidine 20 mg Tablet
20 mg PO DAILY
methimazole 5 mg Tablet
5 mg PO HS
lisinopril 5 mg Tablet
5 mg PO HS
insulin glargine [Lantus Solostar U-100 Insulin] 100 unit/mL (3 mL) Insulin Pen
6 unit SC .AM
Tradjenta 5 mg Tablet
5 mg PO DAILY
Glucosamine Chondroitin 550-30-1 mg Capsule
1 cap PO BID
Prevagen
1 tab PO DAILY
calcium
1 tab PO DAILY
niacin
1 tab PO DAILY
Vitamin C
1 tab PO DAILY
ferrous sulfate
325 mg PO DAILY
Discharge Orders:
Discharge Patient (As Directed); Ordered 12/15/23
Ordered By: Christal Walker
Discharge Date and Time
Discharge Date/Time: 12/15/23 13:23
Print Language: CAMEROONIAN
--- NOTE | 2023-12-15 14:28 | CM ---
patient stable for dc home.explained imm letter to patient.patient to dc home with no needs.
== END 2023-12-15 13:23 | disposition home or self-care (01) | DRG 378 ==
LOC: 4 EAST ACU 23:16
PROVIDERS: Clinical Nurse Specialist Family Health; Emergency Medicine; ADMITTING PHYSICIAN Internal Medicine; ATTENDING PHYSICIAN Hospitalist; CONSULT PHYSICIAN Internal Medicine Gastroenterology; EMERGENCY PHYSICIAN Emergency Medicine
PROC: 0DJ08ZZ Inspection of Upper Intestinal Tract, Via Natural or Artificial Opening Endoscopic (ICD-10-PCS; 2023-12-14)
DX: K31.811 Angiodysplasia of stomach and duodenum with bleeding (principal); D62 Acute posthemorrhagic anemia; E11.22 Type 2 diabetes mellitus with diabetic chronic kidney disease; Z87.891 Personal history of nicotine dependence; E05.00 Thyrotoxicosis with diffuse goiter without thyrotoxic crisis or storm; I12.9 Hypertensive chronic kidney disease with stage 1 through stage 4 chronic kidney disease, or unspecified chronic kidney disease; N18.32 Chronic kidney disease, stage 3b; E78.00 Pure hypercholesterolemia, unspecified; I95.1 Orthostatic hypotension; K22.2 Esophageal obstruction; K22.89 Other specified disease of esophagus; K44.9 Diaphragmatic hernia without obstruction or gangrene; K31.7 Polyp of stomach and duodenum; K31.89 Other diseases of stomach and duodenum
CPT/HCPCS: 80048; 80053; 80061; 82607; 82728; 82746; 82962; 83036; 83540; 83550; 84443; 84484; 85025; 85610; 85730; 86850; 86900; 86901; 93005; 96374; 97162; 99285